=== PATIENT | female | born 1950 | race Caucasian/White ===

== ENCOUNTER 2019-09-11 09:08 | Outpatient (RCR) | payer MEDICARE, OTHER | END 2019-10-11 14:14 | disposition home or self-care (01) | LOC: OPPGERO 09:08 | DX: F33.1 Major depressive disorder, recurrent, moderate (principal); F41.1 Generalized anxiety disorder; Z62.810 Personal history of physical and sexual abuse in childhood; Z79.899 Other long term (current) drug therapy; Z90.710 Acquired absence of both cervix and uterus; Z98.84 Bariatric surgery status; Z98.890 Other specified postprocedural states ==

== ENCOUNTER 2019-10-14 09:31 | Outpatient (RCR) | payer MEDICARE, OTHER | END 2019-11-11 16:17 | disposition home or self-care (01) | LOC: OPPGERO 09:31 | DX: F41.1 Generalized anxiety disorder (principal); Z81.8 Family history of other mental and behavioral disorders; Z98.84 Bariatric surgery status; Z62.810 Personal history of physical and sexual abuse in childhood; Z90.710 Acquired absence of both cervix and uterus; Z90.49 Acquired absence of other specified parts of digestive tract; Z98.890 Other specified postprocedural states ==

== ENCOUNTER 2019-11-12 09:45 | Outpatient (RCR) | payer MEDICARE, OTHER | END 2019-12-11 17:07 | disposition still patient (30) | LOC: OPPGERO 09:45 | DX: F33.1 Major depressive disorder, recurrent, moderate (principal); F41.1 Generalized anxiety disorder; Z62.810 Personal history of physical and sexual abuse in childhood; Z79.899 Other long term (current) drug therapy; Z87.59 Personal history of other complications of pregnancy, childbirth and the puerperium; Z90.49 Acquired absence of other specified parts of digestive tract; Z90.710 Acquired absence of both cervix and uterus; Z98.84 Bariatric surgery status; Z98.890 Other specified postprocedural states ==

== ENCOUNTER 2019-12-12 14:46 | Outpatient (RCR) | payer MEDICARE, OTHER | END 2020-01-10 14:30 | LOC: OPPGERO 14:46 | DX: F33.1 Major depressive disorder, recurrent, moderate (principal); F41.1 Generalized anxiety disorder; Z79.899 Other long term (current) drug therapy; Z98.84 Bariatric surgery status; Z91.410 Personal history of adult physical and sexual abuse; Z90.49 Acquired absence of other specified parts of digestive tract; Z90.710 Acquired absence of both cervix and uterus; Z98.890 Other specified postprocedural states ==

== ENCOUNTER 2020-01-13 09:28 | Outpatient (RCR) | payer MEDICARE, OTHER | END 2020-02-10 16:22 | disposition home or self-care (01) | LOC: OPPGERO 09:28 | DX: F33.1 Major depressive disorder, recurrent, moderate (principal); F41.1 Generalized anxiety disorder; Z98.84 Bariatric surgery status; Z62.810 Personal history of physical and sexual abuse in childhood; Z79.899 Other long term (current) drug therapy; Z86.19 Personal history of other infectious and parasitic diseases; Z90.710 Acquired absence of both cervix and uterus; Z90.49 Acquired absence of other specified parts of digestive tract ==

== ENCOUNTER 2020-02-11 12:20 | Outpatient (RCR) | payer MEDICARE, OTHER | END 2020-03-12 18:20 | disposition home or self-care (01) | LOC: OPPGERO 12:20 | DX: F33.1 Major depressive disorder, recurrent, moderate (principal); F41.1 Generalized anxiety disorder; R10.9 Unspecified abdominal pain; Z62.810 Personal history of physical and sexual abuse in childhood; Z98.890 Other specified postprocedural states; Z90.710 Acquired absence of both cervix and uterus; Z98.84 Bariatric surgery status; Z90.49 Acquired absence of other specified parts of digestive tract ==